=== PATIENT | female | born 1995 | race Caucasian/White ===

== ENCOUNTER → 2019-01-09 | Emergency (ER) | payer OTHER ==
[~2019-01-09] VITALS: Ht 154.9 cm; Wt 60.3 kg
== END | disposition home or self-care (01) ==
LOC: ER 20:54
DX: O26.892 Other specified pregnancy related conditions, second trimester (principal); R00.2 Palpitations; Z34.02 Encounter for supervision of normal first pregnancy, second trimester

== ENCOUNTER → 2019-01-28 | Outpatient (CLI) | payer OTHER | END | disposition home or self-care (01) | LOC: PRENATAL 14:15 | DX: O35.3XX0 Maternal care for (suspected) damage to fetus from viral disease in mother, not applicable or unspecified (principal); Z34.00 Encounter for supervision of normal first pregnancy, unspecified trimester ==

== ENCOUNTER → 2019-04-11 | Outpatient (CLI) | payer OTHER | END | disposition home or self-care (01) | LOC: PRENATAL 13:30 | DX: O26.843 Uterine size-date discrepancy, third trimester (principal); O24.419 Gestational diabetes mellitus in pregnancy, unspecified control; O99.013 Anemia complicating pregnancy, third trimester; Z3A.31 31 weeks gestation of pregnancy ==

== ENCOUNTER 2019-06-06 13:15 | Inpatient (IN) | payer OTHER ==
[~2019-06-06] VITALS: Ht 154.9 cm; Wt 68.9 kg
[2019-06-09] MEDS ORDERED: PRENATAL CAPLE1 EAC1 PO (09:00)
[2019-06-09] MEDS ORDERED: IRON325 MG PO (09:01)
[2019-06-09] MEDS ORDERED: FOLIC ACID0.8 M1 PO (09:02)
== END 2019-06-12 15:44 | disposition home or self-care (01) | DRG 807 ==
LOC: LDR 06-09 06:37 → OB/GYN 06-09 13:15
PROVIDERS: ADMIT Obstetrics & Gynecology
PROC: 10E0XZZ Delivery of Products of Conception, External Approach (ICD-10-PCS; principal; 2019-06-10)
PROC: 4A1HXFZ Monitoring of Products of Conception, Cardiac Rhythm, External Approach (ICD-10-PCS; 2019-06-10)
PROC: 3E033VJ Introduction of Other Hormone into Peripheral Vein, Percutaneous Approach (ICD-10-PCS; 2019-06-10)
DX: O99.814 Abnormal glucose complicating childbirth (principal); Z37.0 Single live birth; Z3A.39 39 weeks gestation of pregnancy

== ENCOUNTER 2020-10-20 21:31 | Emergency (ER) | payer OTHER ==
[~2020-10-20] VITALS: Ht 154.9 cm; Wt 68.0 kg
[~2020-10-20 21:31] MED LIST: FOLIC ACID0.8 M1 PO; IRON325 MG PO; PRENATAL CAPLE1 EAC1 PO
== END 2020-10-21 08:51 | disposition home or self-care (01) ==
LOC: ER 21:31
DX: R19.7 Diarrhea, unspecified (principal)

== ENCOUNTER 2021-01-12 20:56 | Inpatient (IN) | payer OTHER ==
[~2021-01-12] VITALS: Ht 154.9 cm; Wt 65.8 kg
== END 2021-01-22 17:33 | disposition home or self-care (01) | DRG 419 ==
LOC: ER 20:56 → SEC-K 01-13 09:36 → SURG 01-13 09:36 → SURH 01-13 09:36 → SURG 01-13 21:48 → SURH 01-17 11:11
PROVIDERS: Surgery; ADMIT Internal Medicine; ATTEND Internal Medicine
PROC: 8E0ZXY6 Isolation (ICD-10-PCS; 2021-01-15)
PROC: 0FC98ZZ Extirpation of Matter from Common Bile Duct, Via Natural or Artificial Opening Endoscopic (ICD-10-PCS; 2021-01-18)
PROC: BF532Z0 Other Imaging of Gallbladder and Bile Ducts using Fluorescing Agent, Intraoperative (ICD-10-PCS; 2021-01-21)
PROC: 0FT44ZZ Resection of Gallbladder, Percutaneous Endoscopic Approach (ICD-10-PCS; 2021-01-21)
PROC: 0FT44ZZ Resection of Gallbladder, Percutaneous Endoscopic Approach (ICD-10-PCS; principal; 2021-01-21 11:15)
DX: K80.40 Calculus of bile duct with cholecystitis, unspecified, without obstruction (principal); Z20.822 Contact with and (suspected) exposure to COVID-19; Z09 Encounter for follow-up examination after completed treatment for conditions other than malignant neoplasm; Z86.16 Personal history of COVID-19

== ENCOUNTER 2022-01-02 03:20 | Emergency (ER) | payer OTHER ==
[~2022-01-02] VITALS: Ht 154.9 cm; Wt 65.8 kg
[2022-01-02] MEDS ORDERED: PEPCID40 MG PO (05:59)
[2022-01-02] MEDS ORDERED: ONDANSETRON ODT4 MG PO (06:00)
== END 2022-01-02 08:19 ==
LOC: EMR PED 03:20 → ER 03:20 → EMR PED 06:55 → ER 06:55
DX: R11.10 Vomiting, unspecified (principal); R10.13 Epigastric pain

== ENCOUNTER 2022-12-09 07:26 | Emergency (ER) | payer OTHER ==
[~2022-12-09] VITALS: Ht 154.9 cm; Wt 65.8 kg
[~2022-12-09 07:26] MED LIST changes: +ONDANSETRON ODT4 MG PO; +PEPCID40 MG PO
== END 2022-12-09 12:07 | disposition home or self-care (01) ==
LOC: ER 07:27
PROVIDERS: General Practice
DX: N39.0 Urinary tract infection, site not specified (principal); E11.9 Type 2 diabetes mellitus without complications; I10 Essential (primary) hypertension

== ENCOUNTER 2023-01-25 19:03 | Emergency (ER) | payer OTHER ==
[~2023-01-25] VITALS: Ht 154.9 cm; Wt 68.0 kg
[2023-01-26] MEDS ORDERED: KETO10TA2 PO (00:46)
== END 2023-01-26 02:13 | disposition home or self-care (01) ==
LOC: ER 19:03
DX: S93.401A Sprain of unspecified ligament of right ankle, initial encounter (principal); X58.XXXA Exposure to other specified factors, initial encounter; Y93.89 Activity, other specified; Y92.018 Other place in single-family (private) house as the place of occurrence of the external cause; Y99.9 Unspecified external cause status

== ENCOUNTER → 2024-02-15 | Emergency (ER) | payer OTHER ==
[~2024-02-15] VITALS: Ht 162.6 cm; Wt 77.1 kg
[~2024-02-15] MED LIST changes: +KETO10TA2 PO
== END | disposition left against medical advice (07) ==
LOC: ER 22:43
DX: Z53.21 Procedure and treatment not carried out due to patient leaving prior to being seen by health care provider (principal)